=== PATIENT | female | born 1945 | race Caucasian/White ===

== ENCOUNTER 2018-07-20 08:00 | Outpatient (CLI) | payer MEDICARE, OTHER | END 2018-07-20 23:59 | disposition home or self-care (01) | LOC: LAB.R 08:00 | PROVIDERS: ATTEND Internal Medicine | DX: R19.7 Diarrhea, unspecified (principal) | CPT/HCPCS: 81599; 82274; 83630; 87045; 87046; 87177; 87209; 87329; 87493 ==

== ENCOUNTER 2020-12-01 08:07 | Outpatient (CLI) | payer MEDICARE, OTHER ==
[2020-12-01 15:27] LABS: HCT - HEMATOCRIT 43.3 % (37.0-47.0); MEAN CORPUSCULAR HEMOGLOBIN 29.8 pg (27.0-31.0); MEAN CORPUSCULAR HGB CONC 32.3 g/dL (32.0-36.0); MEAN CORPUSCULAR VOLUME 92.1 fL (81.0-99.0); PLT - PLATELET COUNT 57 10^3/uL (130-450); RED CELL DISTRIBUTION WIDTH 14.5 % (12.0-15.0); WHITE BLOOD COUNT 3.6 x10^3/uL (4.8-10.8)
[2020-12-01 16:04] LABS: BILIRUBIN,DIRECT 0.2 mg/dL (0.1-0.5); BILIRUBIN,TOTAL 0.7 mg/dL (0.2-1.0); TOTAL PROTEIN 7.1 g/dL (6.7-8.2)
[2020-12-01 16:14] LABS: FOLATE 8.41 ng/mL (5.90 - >24.8)
[2020-12-02 12:47] LABS: HEPATITIS B SURFACE ANTIGEN NON-REACTIVE (NON-REACTIVE)
== END 2020-12-01 08:08 | disposition home or self-care (01) ==
LOC: LAB.S 08:07
PROVIDERS: ATTEND Family Medicine
DX: D69.6 Thrombocytopenia, unspecified (principal); R74.01 Elevation of levels of liver transaminase levels
CPT/HCPCS: 36415; 80076; 82525; 82607; 82746; 85027; 86317; 87340

== ENCOUNTER 2020-12-16 08:00 | Outpatient (CLI) | payer MEDICARE, OTHER | END 2020-12-16 23:59 | disposition home or self-care (01) | LOC: LAB.S 08:00 | PROVIDERS: ATTEND Physician Assistant Medical | DX: R05 Cough (principal); J02.9 Acute pharyngitis, unspecified; R50.9 Fever, unspecified; Z20.822 Contact with and (suspected) exposure to COVID-19 | CPT/HCPCS: 87070 ==

== ENCOUNTER 2020-12-16 08:00 | Outpatient (CLI) | payer MEDICARE, OTHER ==
--- NOTE | 2020-12-16 13:10 | XRAY Report ---
PROCEDURE: Chest 2 View X-Ray INDICATIONS: COUGH TECHNIQUE: 2 view(s) of the chest. COMPARISON: None. FINDINGS: Surgical changes and devices: None. Lungs and pleura: There is a masslike opacity measuring 7.6 cm overlying the right upper/middle lobe. There is blunting of the costophrenic angles bilaterally, left greater than right. Minimal appearanc e of increased vascularity. Mediastinum: Mediastinal contours are normal. Heart size is enlarged. Bones and chest wall: No suspicious bony abnormalities. Soft tissues appear unremarkable. IMPRESSION: 1. Masslike opacity overlying the right lung as described above highly suspicious for mass of potenti al malignant etiology. CT chest with contrast is recommended for further evaluation. 2. Blunting of the costophrenic angles bilaterally suggestive trace effusions particularly on the lef t. 3. Minimal appearance of increased pulmonary vascularity suggestive of edema. Reviewed by: Nallely Berry MD on 12/16/2020 1:09 PM PDT Approved by: Nallely Berry MD on 12/16/2020 1:09 PM PDT Station ID: [id number]
== END 2020-12-16 23:59 | disposition home or self-care (01) ==
LOC: DI.S 08:00
PROVIDERS: ATTEND Physician Assistant Medical
DX: R91.8 Other nonspecific abnormal finding of lung field (principal); R05 Cough; J02.9 Acute pharyngitis, unspecified; R50.9 Fever, unspecified; Z20.822 Contact with and (suspected) exposure to COVID-19
CPT/HCPCS: 71046; 87070; U0004

== ENCOUNTER 2020-12-17 12:06 | Outpatient (CLI) | payer MEDICARE, OTHER ==
[2020-12-17] MEDS ORDERED: IOVERSOL 320 100 ML VIAL IVP ONE ×2 (15:47→17:02)
[2020-12-17 16:13] LABS: CREATININE 0.7 mg/dL (0.4-1.0)
--- NOTE | 2020-12-17 16:54 | CT Report ---
PROCEDURE: CHEST W INDICATIONS: LUNG MASS CONTRAST: IV CONTRAST: Optiray 320 ml: 100 PO CONTRAST: *NO PO CONTRAST TECHNIQUE: After the administration of intravenous contrast, 5 mm thick sections acquired from the pulmonary api abida to the posterior costophrenic angles. 7 mm thick coronal MIP reformats were acquired. For radia tion dose reduction, the following was used: automated exposure control, adjustment of mA and/or kV according to patient size. COMPARISON: None. FINDINGS: Image quality: Excellent. Lungs and pleura: Dense patchy pneumonia is present at multiple sites, and malignancy at this time is not suspected. The pneumonia with preservation of air bronchograms is seen at the anterior right upp er lobe, the left mid lung near the lower left hilum, and tracking into the lingular segment and ante rior left lower lobe from that area. Additionally, there is mild patchy alveolar infiltration at the right lung base.. No right-sided pleural effusions but there is a small simple appearing left side p osterior layering water density pleural effusion. No pneumothorax. Central and peripheral airways ar e patent and normal in caliber. Mediastinum: Heart size is normal. No pericardial effusion. No mediastinal or hilar adenopathy by size criteria. Thoracic aorta and central pulmonary arteries are normal in size. Esophagus is ana l in caliber. No hiatal hernia. Bones and chest wall: No suspicious bony lesions. No vertebral body compression fractures. No axil lily or supraclavicular adenopathy by size criteria. The thyroid is normal in size and there are no incidental findings.. Abdomen: Visualized upper abdominal solid organs appear normal. Upper abdominal bowel loops are nor mal in caliber. IMPRESSION: Multifocal bilateral relatively dense pneumonia, without evidence of neoplasm. The distribution and a ppearance of maintained air bronchograms argues strongly against neoplastic etiology. Atypical/compli cated viral pneumonia is considered less likely than conventional bacterial pneumonia. Small simple l eft effusion. Reviewed by: Elbert Staley MD on 12/17/2020 4:53 PM PDT Approved by: Elbert Staley MD on 12/17/2020 4:53 PM PDT Station ID: [id number]
== END 2020-12-17 12:07 | disposition home or self-care (01) ==
LOC: LAB 12:06
PROVIDERS: ATTEND Physician Assistant Medical
DX: Z01.812 Encounter for preprocedural laboratory examination (principal); R91.8 Other nonspecific abnormal finding of lung field; J18.9 Pneumonia, unspecified organism; J90 Pleural effusion, not elsewhere classified
CPT/HCPCS: 36415; 71260; 82565; Q9967

== ENCOUNTER 2020-12-28 07:35 | Outpatient (CLI) | payer MEDICARE, OTHER ==
[2020-12-30 12:26] LABS: CERULOPLASMIN 33 mg/dL (18-53)
[2020-12-30 22:36] LABS: ANA SCREEN NEGATIVE (NEGATIVE)
[2020-12-31 04:00] LABS: SMOOTH MUSCLE IGG AB <20 U
== END 2020-12-28 07:36 | disposition home or self-care (01) ==
LOC: LAB.S 07:35
PROVIDERS: ATTEND Physician Assistant Surgical
DX: D69.6 Thrombocytopenia, unspecified (principal); K76.89 Other specified diseases of liver
CPT/HCPCS: 81599; 82104; 82390; 83516; 86038; 86255

== ENCOUNTER 2021-01-13 10:18 | Outpatient (CLI) | payer MEDICARE, OTHER ==
--- NOTE | 2021-01-14 12:48 | Mammography Report ---
UNILATERAL RIGHT DIGITAL DIAGNOSTIC MAMMOGRAM 3D/2D: 01/13/2021 CLINICAL: Patient returns today to evaluate a focal asymmetry in the right breast. Comparison is made to exams dated: 12/04/2020 mammogram and 10/31/2008 mammogram - [facility]. There are scattered fibroglandular elements in right breast. There is an irregular mass with a spiculated margin in the right breast at 11 o'clock anterior depth. This is seen in additional views. No other significant masses or calcifications are seen in the breast. IMPRESSION: INCOMPLETE: NEEDS ADDITIONAL IMAGING EVALUATION The irregular mass in the right breast is indeterminate. Targeted ultrasound is recommended for furt her evaluation, which will be performed immediately following this exam. This exam was interpreted at Station ID: [id number]. NOTE: For mammograms, a report in lay terms will be sent to the patient. Approximately 15% of breast malignancies will not be visualized mammographically. In the management of a palpable breast mass, a negative mammogram must not discourage biopsy of a clinically suspicious lesion. Electronically Signed By: Shayan begum/micki:01/13/2021 12:06:15 ACR BI-RADS Category 0: Incomplete 3340F PARENCHYMAL PATTERN: (A) - The breast(s) demonstrate(s) scattered fibroglandular densities. BI-RADS CATEGORY: (0) - 0 Ultrasound [id number] Immediate follow-up LATERALITY: (R)
--- NOTE | 2021-01-14 12:48 | Ultrasound Report ---
LIMITED ULTRASOUND OF RIGHT BREAST AND AXILLA: 01/13/2021 CLINICAL: Patient returns today to evaluate a focal asymmetry in the right breast. Comparison is made to exams dated: 01/13/2021 mammogram, 12/04/2020 mammogram, and 10/31/2008 mammogram - [facility]. Color flow and real-time ultrasound of the right breast 10 o'clock, and axilla regions were performed . Merchant scale images of the real-time examination were reviewed. There is a 1.1 cm x 0.8 cm x 0.5 cm irregular mass with a microlobulated margin in the right breast a t 10 o'clock anterior depth 4 cm from the nipple. This irregular mass is hypoechoic with an echogeni c boundary and posterior acoustic shadowing. This correlates with mammography findings. Color flow imaging demonstrates that there is vascularity present. No significant abnormalities were seen sonographically in the right axilla. IMPRESSION: SUSPICIOUS OF MALIGNANCY The 1.1 cm x 0.8 cm x 0.5 cm irregular mass in the right breast is at a high suspicion for malignancy . An ultrasound guided biopsy is recommended. The findings and recommendations were discussed with the patient by the onsite radiologist, Dr. Demarco, at the time of the exam. This exam was interpreted at Station ID: [id number]. Electronically Signed By: Shayan begum/micki:01/13/2021 12:08:27 Ultrasound BI-RADS: 4c High suspicion of malignancy BI-RADS CATEGORY: (4c) - High Susp None [id number] Immediate follow-up LATERALITY: ()
== END 2021-01-13 10:19 | disposition home or self-care (01) ==
LOC: DI 10:18
PROVIDERS: ATTEND Family Medicine
DX: N63.11 Unspecified lump in the right breast, upper outer quadrant (principal)

== ENCOUNTER 2021-01-27 08:17 | Outpatient (CLI) | payer MEDICARE, OTHER ==
[2021-01-27] MEDS ORDERED: BUFFERED LIDOCAINE 10 ML SYRINGE ONE (08:31)
[2021-01-27] MEDS ORDERED: LIDOCAINE MPF 1%-EPI 1:200000 30 ML VIAL ONE (08:32)
[2021-01-27] MEDS ORDERED: BUFFERED LIDOCAINE 10 ML SYRINGE IU ONE (11:33)
[2021-01-27] MEDS ORDERED: LIDOCAINE MPF 1%-EPI 1:200000 30 ML VIAL SUBQ ONE (12:00)
--- NOTE | 2021-01-28 06:19 | Mammography Report ---
UNILATERAL RIGHT DIGITAL DIAGNOSTIC MAMMOGRAM 3D/2D: 01/27/2021 CLINICAL: Post right breast ultrasound biopsy, clip placment imaging. Comparison is made to exams dated: 01/13/2021 ultrasound, 01/13/2021 mammogram, 12/04/2020 mammogram, an d 10/31/2008 mammogram - [facility]. Current study contains 2 films. There are scatt ered fibroglandular elements in right breast. There is a marker clip in the appropriate position in the right breast at 10 o'clock anterior depth. This marker clip placement is at the biopsy site. IMPRESSION: POST PROCEDURE MAMMOGRAM FOR MARKER PLACEMENT There was a successful marker clip placement in the right breast anterior depth. This exam was interpreted at Station ID: [id number]. NOTE: For mammograms, a report in lay terms will be sent to the patient. Approximately 15% of breast malignancies will not be visualized mammographically. In the management of a palpable breast mass, a negative mammogram must not discourage biopsy of a clinically suspicious lesion. Electronically Signed By: Danny Demacro jl/:01/27/2021 15:49:45 ACR BI-RADS Category Post-procedure mammogram for marker placement PARENCHYMAL PATTERN: (A) - The breast(s) demonstrate(s) scattered fibroglandular densities. BI-RADS CATEGORY: () - Unspecified - other recall n/a LATERALITY: (B)
--- NOTE | 2021-02-02 05:37 | Ultrasound Report ---
ULTRASOUND GUIDED BIOPSY RIGHT BREAST USING VACUUM DEVICE WITH MARKING DEVICE INSERTED AND POST MAMMO GRAPHIC IMAGIN01/27/2021 CLINICAL: Right breast mass. PATIENT CONSENT: Risks (minor bleeding, infection, vasovagal reaction and repeat procedure), benefits and alternatives were explained to the patient and written informed consent was obtained. Correlation is made to exams dated: 01/27/2021 mammogram, 01/13/2021 ultrasound, 01/13/2021 mammogram, 12/04/2020 mammogram, and [facility] An ultrasound guided biopsy using real-time ultrasound was performed for the nodule located in the ri ght breast at 10 o'clock middle depth. This was described on the previous ultrasound report. The sk in was prepped in the usual manner. Local anesthetic was administered to the access site. A small i ncision was made in the breast. The abnormality was approached from the lateral aspect. A 13 gauge biopsy needle was placed adjacent to the abnormality under ultrasound guidance. Once the needle was documented to be in the correct location, four passes were made using the Mammotome biopsy system. A clip was inserted into the biopsy cavity. A skin adhesive was applied to the access site. Post pro cedure mammographic imaging demonstrates the location device at the targeted area. The specimens wer e sent to the laboratory for pathological analysis. IMPRESSION: ULTRASOUND GUIDED BIOPSY MALIGNANT Ultrasound guided biopsy of the nodule in the right breast at 10 o'clock middle depth was successful with no apparent post procedure complications. 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 Pathology results are concordant with imaging findings. A surgical/oncologic consultation is recommended. This exam was interpreted at Station ID: [id number]. Danny pepper,aty/:02/01/2021 17:38:06 BI-RADS CATEGORY: () - Unspecified - other recall n/a LATERALITY: (B)
== END 2021-01-27 08:18 | disposition home or self-care (01) ==
LOC: DI 08:17
PROVIDERS: ATTEND Family Medicine
DX: C50.411 Malignant neoplasm of upper-outer quadrant of right female breast (principal); Z17.0 Estrogen receptor positive status [ER+]
CPT/HCPCS: 19083; 88305; 88341; 88342; 88360

== ENCOUNTER 2021-02-11 08:18 | Outpatient (CLI) | payer MEDICARE, OTHER ==
[2021-02-11 17:12] LABS: % IRON SATURATION 18 % (20-50); IRON 60 ug/dL (28-170); TOTAL IRON BINDING CAPACITY 330 ug/dL (250-450); TRANSFERRIN 236 mg/dL (192-382)
== END 2021-02-11 08:19 | disposition home or self-care (01) ==
LOC: LAB.S 08:18
PROVIDERS: ATTEND Physician Assistant Surgical
DX: K74.60 Unspecified cirrhosis of liver (principal)
CPT/HCPCS: 36415; 83540; 84466

== ENCOUNTER 2021-02-16 07:15 | Outpatient (CLI) | payer MEDICARE, OTHER ==
--- NOTE | 2021-02-16 10:28 | XRAY Report ---
PROCEDURE: Chest 2 View X-Ray INDICATIONS: FEVER TECHNIQUE: 2 view(s) of the chest. COMPARISON: None. FINDINGS: Surgical changes and devices: None. Lungs and pleura: No pleural effusions or pneumothorax. Lungs are mildly abnormal with a mild pneum onia pattern at the retrocardiac left lower lobe. Mediastinum: Mediastinal contours are normal. Heart size is normal. Bones and chest wall: No suspicious bony abnormalities. Soft tissues appear unremarkable. IMPRESSION: Mild or early pneumonia at the left lung base, behind the heart and also seen superimpos ed upon the left ventricular apex. On the lateral view this pneumonia appears centered posteriorly. Reviewed by: Elbert Staley MD on 02/16/2021 10:27 AM PDT Approved by: Elbert Staley MD on 02/16/2021 10:27 AM PDT Station ID: [id number]
== END 2021-02-16 23:59 | disposition home or self-care (01) ==
LOC: DI.S 07:15
PROVIDERS: ATTEND Physician Assistant
DX: J18.9 Pneumonia, unspecified organism (principal); R50.9 Fever, unspecified; Z20.822 Contact with and (suspected) exposure to COVID-19
CPT/HCPCS: 71046; U0004

== ENCOUNTER 2021-07-18 00:34 | Emergency (ER) | payer MEDICARE, OTHER ==
[2021-07-18 01:01] LABS: BILIRUBIN,URINE NEGATIVE (NEGATIVE); GLUCOSE, URINE (UA) NEGATIVE (NEGATIVE); KETONES,URINE (UA) NEGATIVE (NEGATIVE); LEUKOCYTE ESTERASE, URINE NEGATIVE (NEGATIVE); NITRITE,URINE NEGATIVE (NEGATIVE); OCCULT BLOOD,URINE LARGE (NEGATIVE); PH,URINE 6.5 PH (5.0-7.5); PROTEIN,URINE NEGATIVE (NEGATIVE); UROBILINOGEN,URINE 0.2 (NORMAL) E.U./dL (NORMAL)
[2021-07-18 01:09] LABS: BACTERIA,URINE Rare /HPF (None Seen); CLARITY,URINE HAZY (CLEAR); RBC,URINE TNTC /HPF (0-5); SQUAMOUS EPITHELIAL CELL,UR RARE Squamous (<= Few); WBC,URINE 0-3 /HPF (0-5)
[2021-07-18 01:10] LABS: CRYSTALS,URINE 6-10 Calcium Oxalate /LPF
[2021-07-18 01:10] LABS: BASOPHILS # (AUTO) 0.1 10^3/uL (0.0-0.1); BASOPHILS % (AUTO) 0.8 %; EOSINOPHILS # (AUTO) 0.1 10^3/uL (0.0-0.7); EOSINOPHILS % (AUTO) 1.7 %; HGB - HEMOGLOBIN 14.6 g/dL (12.0-16.0); LYMPHOCYTES # (AUTO) 1.5 10^3/uL (1.5-3.5); LYMPHOCYTES % (AUTO) 22.2 %; MEAN CORPUSCULAR HEMOGLOBIN 29.7 pg (27.0-31.0); MEAN CORPUSCULAR HGB CONC 33.2 g/dL (32.0-36.0); MEAN CORPUSCULAR VOLUME 89.4 fL (81.0-99.0); MEAN PLATELET VOLUME 14.3 fL (7.9-10.8); MONOCYTES # (AUTO) 0.4 10^3/uL (0.0-1.0); MONOCYTES % (AUTO) 5.3 %; NEUTROPHILS # (AUTO) 4.7 10^3/uL (1.5-6.6); NEUTROPHILS % (AUTO) 69.8 %; PLT - PLATELET COUNT 73 10^3/uL (130-450); RED BLOOD COUNT 4.92 10^6/uL (4.20-5.40); RED CELL DISTRIBUTION WIDTH 14.1 % (12.0-15.0); WHITE BLOOD COUNT 6.7 x10^3/uL (4.8-10.8)
[2021-07-18 01:22] LABS: ALBUMIN 4.2 g/dL (3.2-5.5); ALBUMIN/GLOBULIN RATIO 1.1 (1.0-2.2); BILIRUBIN,TOTAL 0.7 mg/dL (0.2-1.0); CALCIUM 9.3 mg/dL (8.5-10.3); CREATININE 0.8 mg/dL (0.4-1.0); POTASSIUM 3.3 mmol/L (3.5-5.0); TOTAL PROTEIN 8.1 g/dL (6.7-8.2)
--- NOTE | 2021-07-18 01:22 | ED Physician Documentation ---
PD HPI BACK PAIN - Stated complaint Stated Complaint: L KIDNEY PX - Chief complaint Chief Complaint: Back Pain - History obtained from History obtained from: Patient - History of Present Illness Timing - onset: Enter time (20:00), Today Timing - details: Abrupt onset Pain level max: 8 Pain level now: 4 Location: Left Quality: Pain Associated symptoms: Hematuria. No: Fever, Weakness, Numbness, Incontinent of urine, Unable to urinate, Incontinent of stool Improves with: Nothing Worsened by: Other (no exacerbating factors) Similar symptoms before: Has not had sx before Recently seen: Not recently seen - Additional information Additional information: patient c/o sudden onset left flank pain associated with gross hematuria, nausea and vomiting. Symptoms began 8 PM tonight, sudden onset while at home at rest. denies h/o similar symptoms Review of Systems Constitutional: reports: Reviewed and negative Cardiac: reports: Reviewed and negative Respiratory: reports: Reviewed and negative GI: reports: Nausea, Vomiting. denies: Abdominal Pain : reports: Hematuria. denies: Dysuria Musculoskeletal: reports: Back pain (left lower back and left flank pain) PD PAST MEDICAL HISTORY - Past Medical History Past Medical History: Yes Cardiovascular: None Respiratory: None GI: None : None HEENT: None Psych: None Musculoskeletal: None - Past Surgical History Past Surgical History: No - Present Medications Home Medications: Ambulatory Orders Medication Instructions Recorded Confirmed Letrozole 2.5 mg PO DAILY 07/18/21 07/18/21 Oxycodone HCl/Acetaminophen 1 - 2 each PO Q6H PRN #14 tablet 07/18/21 [Percocet 5-325 mg Tablet] Tamsulosin [Flomax] 0.4 mg PO DAILY #10 cap 07/18/21 - Allergies Allergies/Adverse Reactions: Allergies Allergy/AdvReac Type Severity Reaction Status Date / Time No Known Drug Allergies Allergy Verified 07/18/21 00:53 - Social History Does the pt smoke?: No Smoking Status: Never smoker Does the pt drink ETOH?: No Does the pt have substance abuse?: No - Immunizations Immunizations are current?: Yes - POLST Patient has POLST: No PD ED PE NORMAL - Vitals Vital signs reviewed: Yes - General General: Alert and oriented X 3, Well developed/nourished, Other (appears to be in moderate painful distress) - Cardiac Cardiac: RRR, No murmur - Respiratory Respiratory: No respiratory distress, Clear bilaterally - Abdomen Abdomen: Soft, Non tender - Back Back: No CVA TTP Results - Vitals Vitals: Oxygen O2 Source Room air - Labs Labs: Laboratory Tests 07/18/21 07/18/21 07/18/21 00:05 01:00 01:00 WBC 6.7 RBC 4.92 Hgb 14.6 Hct 44.0 MCV 89.4 MCH 29.7 MCHC 33.2 RDW 14.1 Plt Count 73 L MPV 14.3 H Neut # (Auto) 4.7 Lymph # (Auto) 1.5 [place] # (Auto) 0.4 Eos # (Auto) 0.1 Baso # (Auto) 0.1 Absolute Nucleated RBC 0.00 Nucleated RBC % 0.0 Sodium 138 Potassium 3.3 L Chloride 101 Carbon Dioxide 27 Anion Gap 10.0 BUN 18 Creatinine 0.8 Estimated GFR (MDRD) 70 L Glucose 158 H Calcium 9.3 Total Bilirubin 0.7 AST 30 ALT 26 Alkaline Phosphatase 78 Total Protein 8.1 Albumin 4.2 Globulin 3.9 Albumin/Globulin Ratio 1.1 Lipase 90 H Urine Color LT RED Urine Clarity HAZY Urine pH 6.5 Ur Specific [place] 1.025 Urine Protein NEGATIVE Urine Glucose (UA) NEGATIVE Urine Ketones NEGATIVE Urine Occult Blood LARGE H Urine Nitrite NEGATIVE Urine Bilirubin NEGATIVE Urine Urobilinogen 0.2 (NORMAL) Ur Leukocyte Esterase NEGATIVE Urine RBC TNTC H Urine WBC 0-3 Ur Squamous Epith Cells RARE Squamous Urine Crystals 6-10 Calcium Oxalate Urine Bacteria Rare Ur Microscopic Review INDICATED Urine Culture Comments NOT INDICATED - Rads (name of study) CT A/P Radiology: Prelim report reviewed, See rad report PD MEDICAL DECISION MAKING - ED course Complexity details: reviewed results, re-evaluated patient, considered differential, d/w patient ED course: presents with left flank pain , sudden onset tonight with CT demonstrating left ureterolithiasis and hydronephrosis, perinephric stranding. she reports symptom relief with IV zofran, toradol, and hydromorphone. results d/w patient. incidental note of cirrhotic appearance of liver is discussed and patient indicates this is not a new finding. she is provided percocet take home pack, given a dose of tamsulosin, with prescriptions for same transmitted to her pharmacy Departure - Departure Disposition: Home, Self Care Clinical Impression: Renal colic Condition: Good Instructions: ED Stone Renal W Colic Follow-Up: CAROLINE AVILES DO [Primary Care Provider] - Prescriptions: Tamsulosin [Flomax] 0.4 mg PO DAILY #10 cap Oxycodone HCl/Acetaminophen [Percocet 5-325 mg Tablet] 1 - 2 each PO Q6H PRN #14 tablet PRN Reason: pain Comments: Prescriptions for pain medication (oxycodone/acetaminophen) and a medication to increase the likelihood of passing the stone (without needing to have it removed; this medication is tamsulosin) have been electronically submitted to [facility] in [place] I am prescribing a short course of narcotic pain medication for you. These are potentially dangerous and addictive medications that should be used carefully. These medications may constipate you. Take an ntsj-dra-mowxxhs stool softener (docusate) twice daily with plenty of water while taking these medications. If you go 24 hours without a bowel movement, take [id number] miralax, per package instructions. Do not drink or drive while taking these medications. If you received narcotic or sedating medications while in the emergency department, do not drive for 24 hours. Store this medication in a safe, secure place and out of reach of children. It is a violation of federal law to give or sell this medication to another person or to use in a manner other than prescribed. The ED will not refill narcotic prescriptions, including prescriptions lost or stolen. To dispose of unwanted medications: 1. [facility] at [address] in [place] has a medication drop box. They accept prescription medications (in pill form) Monday through Monday 9:00 a.m. to 5:00 p.m. 2. The [facility] [employer] accepts prescription medications (in pill form only) for disposal year round. Call for more information. 3. Contact the [facility] for the next [facility] sponsored prescription drug collection event. , [phone], or [phone]; Discharge Date/Time: 07/18/21 05:56
[2021-07-18] MEDS ORDERED: HYDROmorphone 1 MG/ML CARPUJECT IVP STA (01:29)
[2021-07-18] MEDS ORDERED: ONDANSETRON 4 MG/2 ML VIAL IVP STA (01:29)
[2021-07-18] MEDS ORDERED: KETOROLAC 30 MG/ML VIAL IVP STA (01:29)
[2021-07-18 04:59] VITALS: BP 126/68
[2021-07-18] MEDS ORDERED: TAMSULOSIN 0.4 MG CAPSULE PO STA (05:38)
[2021-07-18] MEDS ORDERED: oxyCODONE/ACET 5/325 Prepack 4 PO STA (05:38)
--- NOTE | 2021-07-18 09:01 | CT Report ---
PROCEDURE: Abdomen/Pelvis WO INDICATIONS: left flank pain, hematuria TECHNIQUE: Noncontrast 5 mm thick sections acquired from the diaphragms to the symphysis. 5 mm coronal and sagi ttal reformats were then performed. For radiation dose reduction, the following was used: automated exposure control, adjustment of mA and/or kV according to patient size. COMPARISON: Correlation is made with prior abdominal ultrasound, 08/12/2015. Correlation is also made with the overlapping portions of prior chest CT, 12/17/2020 FINDINGS: Image quality: Excellent. ABDOMEN: Lung bases: Lung bases are clear. Heart size is normal. A small hiatal hernia is incidentally note d. Solid organs: The liver demonstrates a shrunken, nodular appearance. No focal liver lesions are seen on this noncontrast study. The spleen demonstrates normal size and demonstrates no suspicious lesions . Gallbladder wall does not appear thickened. Pancreas is normal in contours. No adrenal nodules . There is an obstructing stone seen within the distal left ureter, which is best seen on series 6 imag e 73 and on series 3 image 116 measuring 5 mm. Numerous pelvic phleboliths can be seen adjacent to th e distal ureters. There is mild to moderate left-sided hydroureter and with moderate hydronephrosis. Relatively prominent left-sided perinephric fat standing can be seen. A 2 mm nonobstructing left-side d kidney stone can be seen, as on series 6 image 51. High attenuation material can be seen within the left renal collecting system. Peritoneum and bowel: Unenhanced bowel loops demonstrate normal wall thickness and caliber. No free fluid or air. Diverticulosis can be seen, without monica findings of active diverticulitis. Appendicoliths can be seen within a normal caliber appendix Nodes and vessels: No retroperitoneal or mesenteric adenopathy by size criteria. Aorta and inferior vena cava are normal in caliber. Atherosclerotic calcification is seen. Miscellaneous: No ventral hernias. PELVIS: Genitourinary: Bladder wall thickness is normal. The uterus demonstrates an unremarkable appearance for age. No adnexal masses are seen. Miscellaneous: No inguinal hernias or adenopathy. Bones: No suspicious bony lesions. No vertebral body compression fractures. Degenerative changes a re seen throughout, which are worst involving the lower lumbar spine. IMPRESSION: 5 mm obstructing stone within the distal left ureter, with associated left-sided hydroureter, hydrone phrosis, and perinephric fat stranding. A 2 mm nonobstructing left-sided kidney stone is also seen. High attenuation material can be seen within the left renal collecting system, which is attributed to hemorrhage. If clinically appropriate, please consider a follow-up renal mass protocol CT (without a nd with contrast). The liver demonstrates a cirrhotic appearance. Please correlate with known patient history. Incidental note is made of: Small hiatal hernia Diverticulosis, without findings of active diverticulitis. Appendicoliths Note: No significant discrepancy from the preliminary report. Reviewed by: Juan J Inman MD on 07/18/2021 8:00 AM [facility] Approved by: Juan J Inman MD on 07/18/2021 8:00 AM [facility] Station ID: [id number]
== END 2021-07-18 05:56 | disposition home or self-care (01) ==
LOC: SUPCPDRO 00:34 → ED 00:34
DX: N13.2 Hydronephrosis with renal and ureteral calculous obstruction (principal)
CPT/HCPCS: 36415; 74176; 80053; 81001; 83690; 85025; 96374; 96375; 99284; A9270; J1170; 81003; 87086

== ENCOUNTER 2024-01-24 15:20 | Emergency (ER) | payer MEDICARE, OTHER ==
--- NOTE | 2024-01-24 15:32 | ED Physician Documentation ---
PD HPI HEAD INJURY - Stated complaint Stated Complaint: HIT HEAD - Chief complaint Chief Complaint: Trauma Hd/Nk - History obtained from History obtained from: Patient - Additional information Additional information: 78-year-old woman with history of thrombocytopenia was working and moving a large steel object just prior to arrival. The object stopped moving and she still had momentum and hit her forehead into it. This happened just prior to arrival. No loss of consciousness and no significant headache. She says her usual platelet count is in the 60,000 range. PD PAST MEDICAL HISTORY - Past Medical History Past Medical History: No Cardiovascular: None Respiratory: None GI: None : None HEENT: None Psych: None Musculoskeletal: None - Past Surgical History Past Surgical History: No - Present Medications Home Medications: Ambulatory Orders Medication Instructions Recorded Confirmed Letrozole 2.5 mg PO DAILY 07/18/21 01/24/24 - Allergies Allergies/Adverse Reactions: Allergies Allergy/AdvReac Type Severity Reaction Status Date / Time No Known Drug Allergies Allergy Verified 01/24/24 15:25 - Social History Does the pt smoke?: No Smoking Status: Never smoker Does the pt drink ETOH?: No Does the pt have substance abuse?: No - Immunizations Immunizations are current?: Yes - POLST Patient has POLST: No PD ED PE NORMAL - Vitals Vital signs reviewed: Yes - General General: Alert and oriented X 3, No acute distress - HEENT HEENT: PERRL, EOMI, Other (There is a contusion above the right medial eyebrow without bony tenderness or evidence of entrapment.) - Neck Neck: Supple, no meningeal sign, No bony TTP - Neuro Neuro: Alert and oriented X 3 Eye Opening: Spontaneous Motor: Obeys Commands Verbal: Oriented GCS Score: 15 Results - Vitals Vitals: Vital Signs - 24 hr 01/24/24 15:26 Temperature 36.5 C Heart Rate 85 Respiratory 16 Rate Blood Pressure 176/76 H O2 Saturation 98 Oxygen O2 Source Room air - Rads (name of study) CT of the head showing no acute intracranial abnormality Relevant Findings:: Final report received, EMP independent interpretation of test PD Medical Decision Making - ED course ED course: Given her age, the mechanism, and history of thrombocytopenia, despite no headache I think cranial imaging is necessary. It was done and negative. Recommended close follow-up for any new symptoms given her thrombocytopenia though. Departure - Departure Disposition: Home, Self Care Clinical Impression: Facial contusion Qualifiers: Encounter type: initial encounter Qualified Code(s): S00.83XA - Contusion of other part of head, initial encounter Condition: Good Record reviewed to determine appropriate education?: Yes Instructions: ED Head Injury Closed Comments: The CAT scan today does not show any evidence of bleeding, skull fracture or other concerning findings. That is very reassuring, but as we discussed given your history of a low platelet count, if you were to develop significant headaches, or any neurologic symptoms please return for reevaluation. Your blood pressure was elevated today on check into the emergency department. This does not mean that you have hypertension, it is a common phenomenon to come to the emergency department and have elevated blood pressure. I recommend that you see your primary care physician within the week to have it rechecked when you are feeling better. Forms: PCP List
--- NOTE | 2024-01-24 16:42 | CT Report ---
PROCEDURE: Head WO INDICATIONS: head inj TECHNIQUE: Noncontrast 4.5 mm thick angled axial sections acquired from the foramen magnum to the vertex. For r adiation dose reduction, the following was used: automated exposure control, adjustment of mA and/or kV according to patient size. COMPARISON: CT head dated 07/07/2014. FINDINGS: Image quality: Excellent. CSF spaces: Basal cisterns are patent. No extra-axial fluid collections. Ventricles are normal in size and shape. Brain: No midline shift. No intracranial masses or hemorrhage. Merchant-white matter interface is norm al. Intracranial carotid calcifications. Age-related volume loss and very mild, age-appropriate smal l vessel ischemic change. Skull and face: Calvarium and visualized facial bones are intact, without suspicious lesions. Sinuses: Visualized sinuses and mastoids are clear. IMPRESSION: No acute intracranial pathology. Reviewed by: Hernan Mckeon MD on 01/24/2024 4:40 PM PDT Approved by: Hernan Mckeon MD on 01/24/2024 4:40 PM PDT Station ID: [id number]
[2024-01-24 17:07] VITALS: BP 152/74; O2SAT 97
== END 2024-01-24 16:58 | disposition home or self-care (01) ==
LOC: ED 15:20
DX: S00.83XA Contusion of other part of head, initial encounter (principal); W22.09XA Striking against other stationary object, initial encounter
CPT/HCPCS: 99283; 99284